=== PATIENT | male | born 1970 | race Caucasian/White ===

== ENCOUNTER 2024-12-31 09:13 | Day surgery (SDC) | payer OTHER ==
[~2024-12-31] VITALS: Ht 177.8 cm; Wt 71.8 kg
[~2024-12-31 09:13] MED LIST: GLIP1TAB6 PO; IBUP-2077 PO
[2024-12-31] MEDS ORDERED: RINGERS SOLUTION,LACTATED 1,000 ML IV ONE (09:21)
[2024-12-31] MEDS ORDERED: BUPIVACAINE HCL/PF 0.25% 30 ML VIAL ONE (09:35)
[2024-12-31] MEDS: CHLORHEXIDINE GLUCONATE 2% TOWELETTE [2'S/6'S] TP ONE (10:00)
[2024-12-31] MEDS: ETHYL ALCOHOL 62% ANTISEPTIC NASAL SANITIZER 0.6 ML AMPUL NASAL ONE (10:01)
[2024-12-31] MEDS: RINGERS SOLUTION,LACTATED 1,000 ML IV ONE (10:02)
[2024-12-31 10:30] LABS: GLUCOMETER DEV NAME(LOC) SDS.; GLUCOSE,POINT OF CARE 134 MG/DL (70-110)
[2024-12-31] MEDS: BUPIVACAINE LIPOSOME/PF 1.3%-13.3MG/ML SUSP 20 ML VIAL INJ ONE (11:55)
[2024-12-31] MEDS: BUPIVACAINE HCL/PF 0.5% 30 ML VIAL ONE (11:55)
[2024-12-31] MEDS ORDERED: OxyCODONE HCL/ACETAMINOPHEN 5-325 MG TABLET ONE (13:06)
[2024-12-31] MEDS: OxyCODONE HCL/ACETAMINOPHEN 5-325 MG TABLET PO ONE (13:24)
== END 2024-12-31 14:05 | disposition home or self-care (01) ==
LOC: SDS 09:13
PROVIDERS: ATTEND Specialist
DX: M75.41 Impingement syndrome of right shoulder (principal); M75.81 Other shoulder lesions, right shoulder; M19.011 Primary osteoarthritis, right shoulder; M77.8 Other enthesopathies, not elsewhere classified; E11.9 Type 2 diabetes mellitus without complications; Z79.899 Other long term (current) drug therapy; Z98.890 Other specified postprocedural states
CPT/HCPCS: 29824; 82962; J0666; J3490 ×2; J7120